=== PATIENT | female | born 1990 | race Caucasian/White ===

== ENCOUNTER 2016-06-07 23:29 | Emergency (ER) | payer OTHER ==
[~2016-06-07] VITALS: Ht 175.3 cm; Wt 139.8 kg
[~2016-06-07 23:29] MED LIST: ADVAIR 250/501 DISK IH; ALBUTEROL17 GM IH; BENTYL10 MG PO; BUTALB-APAP-CA1 EACH PO; CLONAZEPAM0.5 MG PO; DULOXETINE HCL60 MG PO; ORTHO TRI-CYCL1 EACH PO; PROPRANOLOL HCL60 MG PO; SPRINTEC1 EACH PO; ZOFRAN ODT4 MG PO
[2016-06-08] MEDS ORDERED: COMPAZINE10 MG PO (01:29)
[2016-06-08 02:23] VITALS: BP 116/94
== END 2016-06-08 02:24 | disposition home or self-care (01) ==
LOC: EME 23:29
DX: G43.909 Migraine, unspecified, not intractable, without status migrainosus (principal)
CPT/HCPCS: 99281; 99284; J0780; J1200; J7030

== ENCOUNTER 2017-05-18 18:01 | Emergency (ER) | payer OTHER ==
[~2017-05-18] VITALS: Ht 175.3 cm; Wt 141.5 kg
[~2017-05-18 18:01] MED LIST changes: +COMPAZINE10 MG PO
[2017-05-18 19:11] LABS: APPEARANCE CLEAR ((CLEAR)); BILIRUBIN NEGATIVE; BLOOD NEGATIVE; COLOR YELLOW ((YELLOW)); GLUCOSE (STRIP) NEGATIVE; KETONES NEGATIVE; LEUKOCYTES SMALL; NITRITE NEGATIVE; PROTEIN (STRIP) NEGATIVE; SPECIFIC GRAVITY 1.018 (1.000-1.030); UROBILINOGEN 0.2 MG/DL (0.2-1.0)
[2017-05-18 19:19] LABS: BACTERIA NONE SEEN /HPF; EPITHELIAL CELLS 1+ /HPF; MUCUS TRACE /LPF; RED BLOOD CELLS 0-5 /HPF (0-5); UCUL ADDED? NO; WHITE BLOOD CELLS 0-5 /HPF (0-5)
[2017-05-18 19:19] LABS: HEMATOCRIT 41.8 % (36.0-46.0); HEMOGLOBIN 14.3 G/DL (11.9-15.5); MCH 30.1 PG (29.0-34.0); MCHC 34.2 G/DL (30.0-36.0); PLATELET COUNT 390 K/uL (156-360); RED BLOOD COUNT 4.75 M/uL (3.80-5.20); WHITE BLOOD COUNT 11.2 K/uL (4.1-10.2)
[2017-05-18 19:38] LABS: ALBUMIN 3.7 g/dL (3.2-4.8); CHLORIDE 101 mEq/L (99-109); POTASSIUM 4.4 mEq/L (3.7-5.4); SODIUM 141 mEq/L (136-147)
[2017-05-18 19:40] LABS: GLUCOSE 90 mg/dL (70-99)
[2017-05-18 19:41] LABS: TOTAL PROTEIN 7.7 g/dL (6.4-8.3)
[2017-05-18 19:42] LABS: TOTAL BILIRUBIN 0.3 mg/dL (0.0-1.0)
[2017-05-18 19:44] LABS: ALKALINE PHOSPHATASE 95 IU/L (3-129); CREATININE 1.1 mg/dL (0.6-1.3); GFR ESTIMATE (CALCULATED) > 59 mL/min/
[2017-05-18 19:45] LABS: UREA NITROGEN (BUN) 11 mg/dL (9-23)
[2017-05-18 19:46] LABS: AST (GOT) 19 IU/L (2-34)
[2017-05-18 19:47] LABS: ALT (GPT) 21 IU/L (3-49)
[2017-05-18 19:57] LABS: QUANTITATIVE HCG < 4.0 MIU/ML
[2017-05-18] MEDS ORDERED: NAPROSYN500 MG PO (23:15)
[2017-05-18] MEDS ORDERED: ZOFRAN4 MG PO (23:15)
[2017-05-19] MEDS ORDERED: ULTRAM50 MG PO (00:05)
[2017-05-19 00:17] VITALS: BP 132/74
== END 2017-05-19 00:22 | disposition home or self-care (01) ==
LOC: EME 18:01
DX: N83.01 Follicular cyst of right ovary (principal); K59.00 Constipation, unspecified; J45.909 Unspecified asthma, uncomplicated
CPT/HCPCS: 74177; 80053; 81003; 84702; 85027; 99281; 99285; J2405; J3010; J7030

== ENCOUNTER 2017-12-28 22:01 | Emergency (ER) | payer OTHER ==
[~2017-12-28] VITALS: Ht 172.7 cm; Wt 138.1 kg
[~2017-12-28 22:01] MED LIST changes: +NAPROSYN500 MG PO; +ULTRAM50 MG PO; +ZOFRAN4 MG PO
[2017-12-28 22:22] LABS: APPEARANCE CLEAR ((CLEAR)); BILIRUBIN NEGATIVE; BLOOD SMALL; COLOR YELLOW ((YELLOW)); GLUCOSE (STRIP) NEGATIVE; KETONES NEGATIVE; LEUKOCYTES TRACE; NITRITE NEGATIVE; PROTEIN (STRIP) NEGATIVE; UROBILINOGEN 0.2 MG/DL (0.2-1.0)
[2017-12-28 22:39] LABS: BACTERIA NONE SEEN /HPF; EPITHELIAL CELLS RARE /HPF; MUCUS NONE SEEN /LPF; RED BLOOD CELLS 0-5 /HPF (0-5); UCUL ADDED? NO; WHITE BLOOD CELLS 0-5 /HPF (0-5)
[2017-12-28 22:41] LABS: HEMATOCRIT 39.1 % (36.0-46.0); HEMOGLOBIN 13.3 G/DL (11.9-15.5); MCH 29.7 PG (29.0-34.0); MCV 87.3 FL (83-99); PLATELET COUNT 340 K/uL (156-360); RBC DIS.WIDTH-CV 12.9 % (11.8-14.6); RBC DIS.WIDTH-SD 40.9 % (39-53); RED BLOOD COUNT 4.48 M/uL (3.80-5.20); WHITE BLOOD COUNT 10.6 K/uL (4.1-10.2)
[2017-12-28 22:53] LABS: ALBUMIN 3.6 g/dL (3.2-4.8); CHLORIDE 104 mEq/L (99-109); SODIUM 139 mEq/L (136-147)
[2017-12-28 22:55] LABS: GLUCOSE 113 mg/dL (70-99)
[2017-12-28 22:57] LABS: TOTAL BILIRUBIN 0.5 mg/dL (0.0-1.0)
[2017-12-28 22:59] LABS: ALKALINE PHOSPHATASE 87 IU/L (3-129); CREATININE 0.8 mg/dL (0.6-1.3); GFR ESTIMATE (CALCULATED) > 59 mL/min/
[2017-12-28 23:00] LABS: UREA NITROGEN (BUN) 6 mg/dL (9-23)
[2017-12-28 23:01] LABS: AST (GOT) 17 IU/L (2-34)
[2017-12-28 23:02] LABS: ALT (GPT) 17 IU/L (3-49); LIPASE 20 U/L (1.0-51.0)
[2017-12-28 23:09] LABS: QUANTITATIVE HCG < 4.0 MIU/ML
[2017-12-29] MEDS ORDERED: BENTYL10 MG PO (00:25)
[2017-12-29] MEDS ORDERED: ZOFRAN4 MG PO (00:25)
[2017-12-29 01:17] VITALS: BP 126/91
== END 2017-12-29 01:18 | disposition home or self-care (01) ==
LOC: EME 22:01
DX: R10.11 Right upper quadrant pain (principal); R11.2 Nausea with vomiting, unspecified; E86.0 Dehydration; J45.909 Unspecified asthma, uncomplicated; F32.9 Major depressive disorder, single episode, unspecified
CPT/HCPCS: 76705; 80053; 81003; 83690; 84702; 85027; 99281; 99285; J2405; J3010; J7030; S0028